=== PATIENT | female | born 1975 | race Caucasian/White ===

== ENCOUNTER 2018-05-09 07:04 | Emergency (ER) | payer OTHER ==
[~2018-05-09] VITALS: Ht 165.1 cm; Wt 96.4 kg
[2018-05-09] MEDS ORDERED: PAXIL10 MG PO (07:11)
[2018-05-09] MEDS ORDERED: COZAAR 25 MG TA25 M1 PO (07:11)
[2018-05-09 07:42] LABS: ABSOLUTE BASOPHILS 0.1 thou/uL (0.0-0.2); ABSOLUTE EOSINOPHILS 0.4 thou/uL (0.0-0.7); ABSOLUTE LYMPHOCYTES 2.7 thou/uL (0.8-5.3); ABSOLUTE MONOCYTES 0.9 thou/uL (0.0-1.2); ABSOLUTE NEUTROPHILS 9.2 thou/uL (1.6-8.1); BASOPHILS 0.8 %; EOSINOPHILS 3.4 %; HEMATOCRIT 40.1 % (37.0-47.0); HEMOGLOBIN 13.3 gm/dL (12.0-15.0); LYMPHOCYTES 20.4 %; MCH 29.7 pg (26.0-34.0); MCHC 33.2 g/dL (28.0-37.0); MCV 89.4 fL (80.0-100.0); MONOCYTES 6.7 %; MPV 9.4 fl. (7.2-11.1); NUCLEATED RBCS 0 /100WBC; PLATELET COUNT* 318 thou/uL (150-400); POLYS 68.7 %; RBC 4.49 mil/uL (4.20-5.00); RDW-CV 13.8 % (10.5-14.5); WBC 13.3 thou/uL (4.0-11.0)
[2018-05-09 07:52] LABS: ANION GAP 9 mmol/L (7-16); BUN 12 mg/dL (7-18); CALCIUM 9.1 mg/dL (8.5-10.1); CHLORIDE 102 mmol/L (98-107); CO2 23 mmol/L (21-32); CREATININE 0.9 mg/dL (0.6-1.3); GLUCOSE 133 mg/dL (70-99); POTASSIUM 3.8 mmol/L (3.5-5.1); SODIUM 134 mmol/L (136-145)
[2018-05-09 07:56] LABS: APTT 28.6 Seconds (25.0-31.3); PROTIME 9.3 Seconds (9.20-11.50)
[2018-05-09 08:02] LABS: ALBUMIN 3.9 g/dL (3.4-5.0); ALKALINE PHOSPHATASE 80 U/L (46-116); LIPASE 122 U/L (73-393); NT-PRO BRAIN NAT PEPTIDE 26 pg/mL (<300); SGOT 13 U/L (15-37); SGPT 28 U/L (30-65); TOTAL BILIRUBIN 0.3 mg/dL (<0.1-1.0); TOTAL PROTEIN 7.5 g/dL (6.4-8.2); TROPONIN-I LEVEL <0.06 ng/mL (<0.06)
[2018-05-09] MEDS ORDERED: ZOFRAN ODT4 MG PO (11:24)
[2018-05-09] MEDS ORDERED: CARAFATE 1 GM TA1 GM PO (11:24)
[2018-05-09] MEDS ORDERED: PRILOSEC 20 MG20 MG PO (11:24)
[2018-05-09 11:35] VITALS: BP 138/90
--- NOTE | 2018-05-10 10:42 | EKG ---
[place] [address] ELECTROCARDIOGRAM REPORT Name: GETACHEW RODRIGES Room: [facility]#: [id number] Admission: 05/09/18 Attend Phys: Discharge: 05/09/18 Date of : 73 Report #: [id number] THIS REPORT FOR: //name// [facility] ED Test Date: 2018-05-09 Test Time: 07:09:25 Pat Name: GETACHEW RODRIGES Department: Room: Gender: F Farm Equipment Engine Mechanic: : 1975 Requested By: Marceal Pena Order Number: [id number] MD: Juliano Ratliff Measurements Intervals Traer Rate: 97 P: 37 NM: 176 QRS: 5 QRSD: 88 T: 12 QT: 373 QTc: 474 Interpretive Statements Sinus rhythm Probable left atrial enlargement Left ventricular hypertrophy with repolarization changes Baseline wander in lead(s) V1,V2 No previous ECG available for comparison Electronically Signed On 05-10-2018 10:41:55 CDT by Juliano Ratliff [email or web address] <ELECTRONICALLY SIGNED> By: Juliano Ratliff MD, [facility] 05/10/18 1041 8 8 Juliano Ratliff MD, [facility] /EPI
== END 2018-05-09 11:35 | disposition home or self-care (01) ==
LOC: M.ERS 07:04
PROVIDERS: Personal Emergency Response Attendant
DX: R07.89 Other chest pain (principal); I10 Essential (primary) hypertension

== ENCOUNTER → 2018-06-05 | Outpatient (CLI) | payer OTHER ==
[~2018-06-05] MED LIST: CARAFATE 1 GM TA1 GM PO; COZAAR 25 MG TA25 M1 PO; PAXIL10 MG PO; PRILOSEC 20 MG20 MG PO; ZOFRAN ODT4 MG PO
--- NOTE | 2018-06-05 15:31 | EXE ---
[place] [address] STRESS ECHOCARDIOGRAM Name: GETACHEW RODRIGES Room: [facility]#: [id number] Admission: 06/05/18 Attend Phys: Alfie Martin, Discharge: Date of : 73 Date of Service: 06/05/18 1530 Report #: [id number] THIS REPORT FOR: //name// APPROVED REPORT Study performed: 06/05/2018 11:13:54 Exam: Stress Echocardiogram Indication: Chest pain Patient Location: Out-Patient Stress Nurse: Juliette Flood RN Supervising Physician: Ronald Cordova MD Ht: 5 ft 5 in HR: 71 bpm BP: 131/76 mmHg Medical History Cardiac Risk Factors: HTN, FHX of CAD Procedure The patient underwent an Exercise Stress Test using the Latrell Protocol. Blood pressure, heart rate, and EKG were monitored. An Echocardiogram was performed by traffic signal technician in four stages in quad fashion. At peak stress, four selected images were obtained and placed side by side with resting images for comparison. Stress Test Details Stress Test: Exercise stress testing was performed using a Latrell protocol. HR Resting HR: 71 bpm Max Heart Rate (APMHR): 177 bpm Max HR Achieved: 167 bpm Target HR (85% APMHR): 150 bpm % of APMHR: 94 Recovery HR: 98 bpm HR response to stress: Normal HR response to stress BP Resting BP: 131/76 mmHg Max BP: 202/84 mmHg Recovery BP: 139/77 mmHg ECG Resting ECG: normal Stress ECG: no ischemic [place] [address] STRESS ECHOCARDIOGRAM Name: GETACHEW RODRIGES Room: [facility]#: [id number] Admission: 06/05/18 Attend Phys: Alfie Martin, Discharge: Date of : 73 Date of Service: 06/05/18 1530 Report #: [id number] Clinical Reason for Termination: Maximal effort, Completed protocol Exercise duration: 6 min 46 sec Highest Stage Achieved: Stage 3: 3.4 mph at 14% grade. Exercise capacity: 8.19 METs Pre-Stress Echo The resting Echocardiogram showed normal left ventricular contractility with an estimated Ejection Fraction of about 55-60%. Normal wall motion in all segments on baseline images. Post-Stress Echo The stress Echocardiogram showed normal left ventricular contractility with an estimated Ejection Fraction of about >70%. Normal augmentation of wall motion in all segments on post stress images. Conclusion Clinical Response: Non-ischemic Exercise Capacity: Average Stress ECG Response: Non-ischemic Stress Echo Images: Non-ischemic Other Information Study Quality: Good <ELECTRONICALLY SIGNED> By: Ronald Cordova MD, [facility] 06/05/181529 29 29 Ronald Cordova MD, [facility] /INF
== END ==
LOC: M.CRD 10:31
DX: I10 Essential (primary) hypertension (principal); R06.09 Other forms of dyspnea